=== PATIENT | female | born 1995 | race Caucasian/White ===

== ENCOUNTER 2016-08-25 12:12 | Observation (INO) | payer BC ==
[2016-08-25] MEDS ORDERED: SODIUM CHLORIDE 0.9% 1,000 ML IV STA (13:01)
[2016-08-25] MEDS ORDERED: ONDANSETRON 4 MG/2 ML VIAL IVP STA (13:01)
--- NOTE | 2016-08-25 13:18 | ED ---
Abdominal Pain HPI - General Source: patient, RN notes reviewed Mode of arrival: ambulatory Limitations: no limitations <Edi Arnold - Last Filed: 08/25/16 15:47> <Frank Mann - Last Filed: 08/25/16 15:55> - General Chief Complaint: Abdominal Pain Stated Complaint: Abnormal Labs Time Seen by Provider: 08/25/16 13:01 - History of Present Illness Initial Comments: 21 year old female presents emergency Department from flat kn[employer] office chief complaint abnormal ketones in urine. Patient states she's been vomiting today. States she is very nauseated and having diffuse abdominal discomfort. Patient states that her blood sugar was 160. Patient states she has been in the hospital multiple times but not recently. Patient states she just does not feel well. Patient states is currently is using insulin pens. Patient states that she's been fitted for a pump. Patient offers no other complaints. (Edi Arnold) - Related Data Home Medications Medication Instructions Recorded Confirmed Dextroamphetamine/Amphetamine 30 mg PO QAM 08/25/16 08/25/16 [Adderall Xr] INSULIN LISPRO (For Pump) [humaLOG 0.01 units SQ-PUMP CONTINUOUS 08/25/16 (For Pump)] Insulin Glargine [Lantus] 20 unit SQ HS 08/25/16 08/25/16 Allergies Allergy/AdvReac Type Severity Reaction Status Date / Time No Known Allergies Allergy Verified 08/25/16 12:25 Review of Systems ROS Other: All systems not noted in ROS Statement are negative. <Edi Arnold - Last Filed: 08/25/16 15:47> ROS Other: All systems not noted in ROS Statement are negative. <Frank Mann - Last Filed: 08/25/16 15:55> ROS Statement: Those systems with pertinent positive or pertinent negative responses have been documented in the HPI. Past Medical History Past Medical History: Diabetes Mellitus Additional Past Medical History / Comment(s): Diabetes mellitus type 2 diagnosed at 12 years of age on insulin pump History of Any Multi-Drug Resistant Organisms: None Reported Past Surgical History: Adenoidectomy, Tonsillectomy Past Psychological History: ADD/ADHD, Anxiety, Depression Smoking Status: Never smoker Past Alcohol Use History: Occasional Additional Past Alcohol Use History / Comment(s): 5 beers on the weekend, she uses marijuana on a daily basis. Past Drug Use History: Marijuana Additional Drug Use History / Comment(s): has not smoked MJ in a while - Past Family History Father Additional Family Medical History / Comment(s): Father is alive at age 61 and uses crack cocaine. Mother Family Medical History: Cancer Additional Family Medical History / Comment(s): Mother is alive at age 58 and has been treated for some type of blood cancer and she is an alcoholic. Brother(s) Additional Family Medical History / Comment(s): Patient has 1 brother but has not been in any contact with him. She has one sister that is 34 years old and has depression. Patient does not have any children of her own. <Edi Arnold - Last Filed: 08/25/16 15:47> General Exam Limitations: no limitations General appearance: alert, in no apparent distress Neck exam: Present: normal inspection, full ROM. Absent: tenderness, meningismus, lymphadenopathy Respiratory exam: Present: normal lung sounds bilaterally. Absent: respiratory distress, wheezes, rales, rhonchi, stridor Cardiovascular Exam: Present: normal rhythm, tachycardia, normal heart sounds. Absent: systolic murmur, diastolic murmur, rubs, gallop, clicks GI/Abdominal exam: Present: soft, tenderness (Mild diffuse), normal bowel sounds. Absent: distended, guarding, rebound, rigid Back exam: Absent: CVA tenderness (R), CVA tenderness (L) Skin exam: Present: warm, dry, intact, normal color. Absent: rash <Edi Arnold - Last Filed: 08/25/16 15:47> Course <Edi Arnold - Last Filed: 08/25/16 15:47> <Frank Mann - Last Filed: 08/25/16 15:55> Vital Signs 08/25/16 12:22 Temperature 98.6 F Pulse Rate 127 H Respiratory 18 Rate Blood Pressure 109/77 O2 Sat by Pulse 96 Oximetry - Reevaluation(s) Reevaluation #1: 08/25/16 15:03 Patient was reevaluated after second liter fluids. Patient states she feels much improved. Patient was pending repeat acetone. (Edi Arnold) Medical Decision Making - Lab Data Result diagrams: 08/25/16 13:28 08/25/16 13:28 <Edi Arnold - Last Filed: 08/25/16 15:47> - Lab Data Result diagrams: 08/25/16 13:28 08/25/16 13:28 <Frank Mann - Last Filed: 08/25/16 15:55> - Medical Decision Making Patient reexamined by myself, Dr. Mann. Patient resting comfortably in bed. Secondary to continued sermon acetone positive patient will be admitted for further hydration. DKA protocol will be started. Case discussed in detail with Dr. Alejandre, covering for Dr. gaitan, who will admit for Dr. Lozano. (Frank Mann) - Lab Data Lab Results 08/25/16 08/25/16 08/25/16 Range/Units 13:28 13:28 14:35 WBC 14.9 H (3.8-10.6) k/uL RBC 4.85 (3.80-5.40) m/uL Hgb 14.3 (11.4-16.0) gm/dL Hct 42.0 (34.0-46.0) % MCV 86.5 (80.0-100.0) fL MCH 29.5 (25.0-35.0) pg MCHC 34.1 (31.0-37.0) g/dL RDW 12.1 (11.5-15.5) % Plt Count 190 (150-450) k/uL Neutrophils % 94 % Lymphocytes % 2 % Monocytes % 2 % Eosinophils % 1 % Basophils % 0 % Neutrophils # 14.0 H (1.3-7.7) k/uL Lymphocytes # 0.3 L (1.0-4.8) k/uL Monocytes # 0.4 (0-1.0) k/uL Eosinophils # 0.1 (0-0.7) k/uL Basophils # 0.0 (0-0.2) k/uL Sodium 142 (137-145) mmol/L Potassium 4.1 (3.5-5.1) mmol/L Chloride 102 (98-107) mmol/L Carbon Dioxide 24 (22-30) mmol/L Anion Gap 16 mmol/L BUN 15 (7-17) mg/dL Creatinine 0.64 (0.52-1.04) mg/dL Est GFR (MDRD) Af Amer >60 (>60 ml/min/1.73 sqM) Est GFR (MDRD) Non-Af >60 (>60 ml/min/1.73 sqM) Glucose 233 H (74-99) mg/dL POC Glucose (mg/dL) (75-99) mg/dL POC Glu In Home Caregiver ID Calcium 9.5 (8.4-10.2) mg/dL Magnesium 1.5 L (1.6-2.3) mg/dL Total Bilirubin 0.8 (0.2-1.3) mg/dL AST 16 (14-36) U/L ALT 34 (9-52) U/L Alkaline Phosphatase 58 (38-126) U/L Total Protein 7.2 (6.3-8.2) g/dL Albumin 4.8 (3.5-5.0) g/dL Amylase 36 (30-110) U/L Lipase 50 (23-300) U/L Urine Color Urine Appearance (Clear) Urine pH (5.0-8.0) Ur Specific [place] (1.001-1.035) Urine Protein (Negative) Urine Glucose (UA) (Negative) Urine Ketones (Negative) Urine Blood (Negative) Urine Nitrate (Negative) Urine Bilirubin (Negative) Urine Urobilinogen (<2.0) mg/dL Ur Leukocyte Esterase (Negative) Urine RBC (0-5) /hpf Urine WBC (0-5) /hpf Ur Squamous Epith Cells (0-4) /hpf Urine Mucus (None) /hpf Urine HCG, Qual Not Detected (Not Detectd) Acetone, Qual Positive (Negative) 08/25/16 08/25/16 08/25/16 Range/Units 14:35 15:04 15:48 WBC (3.8-10.6) k/uL RBC (3.80-5.40) m/uL Hgb (11.4-16.0) gm/dL Hct (34.0-46.0) % MCV (80.0-100.0) fL MCH (25.0-35.0) pg MCHC (31.0-37.0) g/dL RDW (11.5-15.5) % Plt Count (150-450) k/uL Neutrophils % % Lymphocytes % % Monocytes % % Eosinophils % % Basophils % % Neutrophils # (1.3-7.7) k/uL Lymphocytes # (1.0-4.8) k/uL Monocytes # (0-1.0) k/uL Eosinophils # (0-0.7) k/uL Basophils # (0-0.2) k/uL Sodium (137-145) mmol/L Potassium (3.5-5.1) mmol/L Chloride (98-107) mmol/L Carbon Dioxide (22-30) mmol/L Anion Gap mmol/L BUN (7-17) mg/dL Creatinine (0.52-1.04) mg/dL Est GFR (MDRD) Af Amer (>60 ml/min/1.73 sqM) Est GFR (MDRD) Non-Af (>60 ml/min/1.73 sqM) Glucose (74-99) mg/dL POC Glucose (mg/dL) 220 H (75-99) mg/dL POC Glu In Home Caregiver ID Eunice Gutierrez Calcium (8.4-10.2) mg/dL Magnesium (1.6-2.3) mg/dL Total Bilirubin (0.2-1.3) mg/dL AST (14-36) U/L ALT (9-52) U/L Alkaline Phosphatase (38-126) U/L Total Protein (6.3-8.2) g/dL Albumin (3.5-5.0) g/dL Amylase (30-110) U/L Lipase (23-300) U/L Urine Color Yellow Urine Appearance Clear (Clear) Urine pH 5.5 (5.0-8.0) Ur Specific [place] 1.017 (1.001-1.035) Urine Protein Negative (Negative) Urine Glucose (UA) 4+ H (Negative) Urine Ketones 4+ H (Negative) Urine Blood Trace H (Negative) Urine Nitrate Negative (Negative) Urine Bilirubin Negative (Negative) Urine Urobilinogen <2.0 (<2.0) mg/dL Ur Leukocyte Esterase Negative (Negative) Urine RBC <1 (0-5) /hpf Urine WBC 1 (0-5) /hpf Ur Squamous Epith Cells 2 (0-4) /hpf Urine Mucus Occasional H (None) /hpf Urine HCG, Qual (Not Detectd) Acetone, Qual Positive (Negative) Disposition <Edi Arnold - Last Filed: 08/25/16 15:47> <Frank Mann - Last Filed: 08/25/16 15:55> Clinical Impression: DKA (diabetic ketoacidoses) Disposition: ADMITTED IP TO THIS HOSP Referrals: Gilda Lozano MD [Primary Care Provider] - 1-2 days
[2016-08-25 13:47] LABS: Basophils % (A) 0 %; CHCM 34.8; Eosinophils # (A) 0.1 k/uL (0-0.7); Eosinophils % (A) 1 %; HDW 2.57; HGB 14.3 gm/dL (11.4-16.0); Luc # (Auto) 0.04; Luc % (Auto) 0; Lymphocytes # (A) 0.3 k/uL (1.0-4.8); Lymphocytes % (A) 2 %; MCH 29.5 pg (25.0-35.0); MCHC 34.1 g/dL (31.0-37.0); MCV 86.5 fL (80.0-100.0); Mean Platelet Volume 8.3; Monocytes # (A) 0.4 k/uL (0-1.0); Monocytes % (A) 2 %; Neutrophils % (A) 94 %; RBC 4.85 m/uL (3.80-5.40); RDW 12.1 % (11.5-15.5); WBC 14.9 k/uL (3.8-10.6); WBC (Perox) 15.07
[2016-08-25 13:54] LABS: ALT 34 U/L (9-52); AST 16 U/L (14-36); Alkaline Phosphatase 58 U/L (38-126); Amylase 36 U/L (30-110); Anion Gap 16 mmol/L; Blood Urea Nitrogen 15 mg/dL (7-17); Calcium 9.5 mg/dL (8.4-10.2); Carbon Dioxide 24 mmol/L (22-30); Chloride 102 mmol/L (98-107); Glucose 233 mg/dL (74-99); Magnesium 1.5 mg/dL (1.6-2.3); Non-African American GFR(MDRD) >60 (>60 ml/min/1.73 sqM); Potassium 4.1 mmol/L (3.5-5.1); Sodium 142 mmol/L (137-145); Total Bilirubin 0.8 mg/dL (0.2-1.3); Total Protein 7.2 g/dL (6.3-8.2)
[2016-08-25] MEDS ORDERED: KETOROLAC 30 MG/ML 1 ML VIAL IVP STA (14:07)
[2016-08-25] MEDS ORDERED: SODIUM CHLORIDE 0.9% 1,000 ML IV ONE (14:12)
[2016-08-25 14:52] LABS: Appearance,Urine Clear (Clear); Bilirubin,Urine Negative (Negative); Glucose,Urine (UA) 4+ (Negative); Leukocyte Esterase,Urine Negative (Negative); Mucus,Urine Occasional /hpf; Nitrite,Urine Negative (Negative); PH, Urine 5.5 (5.0-8.0); Particle Count 3667; Protein,Urine Negative (Negative); RBC,Urine <1 /hpf (0-5); Specific Gravity,Urine 1.017 (1.001-1.035); Squamous Epithelial Cell,Urine 2 /hpf (0-4); UA Billing (MACRO vs. MICRO) MICRO; Urobilinogen,Urine <2.0 mg/dL (<2.0); WBC,Urine 1 /hpf (0-5)
[2016-08-25 14:59] LABS: Ketones,Urine 4+ (Negative)
[2016-08-25 15:51] LABS: Glucose,Whole Blood 220 mg/dL (75-99)
[2016-08-25] MEDS ORDERED: INSULIN REGULAR 100 UNIT in SODIUM CHLORIDE 0.9% 100 ML IV SCH (16:30)
[2016-08-25] MEDS: D5-0.45% NACL WITH KCL 20MEQ/L 1,000 ML IV SCH ×2 (16:36→23:10)
[2016-08-25 17:13] LABS: Glucose,Whole Blood 264 mg/dL (75-99)
[2016-08-25] MEDS ORDERED: INSULIN LISPRO (humaLOG) 300 UNIT/3 ML VIAL SQ SCH (17:30)
[2016-08-25 18:14] LABS: Anion Gap 12 mmol/L; Blood Urea Nitrogen 13 mg/dL (7-17); Carbon Dioxide 23 mmol/L (22-30); Chloride 105 mmol/L (98-107); Glucose 242 mg/dL (74-99); Non-African American GFR(MDRD) >60 (>60 ml/min/1.73 sqM); Potassium 3.6 mmol/L (3.5-5.1); Sodium 140 mmol/L (137-145)
[2016-08-25] MEDS: SODIUM CHLORIDE 0.9% 1,000 ML IV SCH ×2 (18:16→22:04)
[2016-08-25 18:45] VITALS: BMI 24.7
[2016-08-25 18:53] LABS: Glucose,Whole Blood 208 mg/dL (75-99)
[2016-08-25 19:31] LABS: Glucose,Whole Blood 189 mg/dL (75-99)
[2016-08-25 20:30] LABS: Glucose,Whole Blood 143 mg/dL (75-99)
[2016-08-25 20:43] LABS: Hemoglobin A1C 8.2 % (4.2-6.1)
[2016-08-25] MEDS ORDERED: ACETAMINOPHEN TAB 325 MG TAB PO PRN (21:28)
[2016-08-25] MEDS ORDERED: Magnesium Replacement Protocol 1 EACH MISC MISCELLANE PRN (21:28)
[2016-08-25] MEDS ORDERED: HYDROcodone/APAP 5-325MG 1 EACH TAB PO PRN (21:28)
[2016-08-25 21:35] LABS: Anion Gap 13 mmol/L; Blood Urea Nitrogen 11 mg/dL (7-17); Carbon Dioxide 25 mmol/L (22-30); Chloride 102 mmol/L (98-107); Glucose 124 mg/dL (74-99); Non-African American GFR(MDRD) >60 (>60 ml/min/1.73 sqM); Sodium 140 mmol/L (137-145)
[2016-08-25 21:36] LABS: Glucose,Whole Blood 120 mg/dL (75-99)
--- NOTE | 2016-08-25 21:53 | XR ---
EXAMINATION TYPE: XR chest 2V DATE OF EXAM: 08/25/2016 9:47 PM COMPARISON: NONE HISTORY: Infection TECHNIQUE: Frontal and lateral views of the chest are obtained. FINDINGS: Heart and mediastinum are normal. Lungs are clear. Diaphragm is normal. Bony thorax and so ft tissues appear normal. There are chest leads. IMPRESSION: Normal chest.
[2016-08-25] MEDS ORDERED: LEVOFLOXACIN 500MG-D5W PMX 500 MG in DEXTROSE/WATER 1 100ML.BAG IVPB SCH (22:00)
[2016-08-25 22:32] LABS: Glucose,Whole Blood 118 mg/dL (75-99)
[2016-08-25 23:37] LABS: Glucose,Whole Blood 200 mg/dL (75-99)
[2016-08-25] MEDS: MAGNESIUM SULFATE-D5W PMX 1 GM in DEXTROSE/WATER 1 100ML.BAG IVPB SCH (23:51)
[2016-08-26 00:43] LABS: Glucose,Whole Blood 281 mg/dL (75-99)
[2016-08-26 00:46] LABS: Glucose,Whole Blood 301 mg/dL (75-99)
[2016-08-26 01:45] LABS: Glucose,Whole Blood 275 mg/dL (75-99)
[2016-08-26] MEDS: MAGNESIUM SULFATE-D5W PMX 1 GM in DEXTROSE/WATER 1 100ML.BAG IVPB SCH ×2 (01:50→03:26)
[2016-08-26 02:48] LABS: Glucose,Whole Blood 269 mg/dL (75-99)
[2016-08-26 02:56] LABS: Anion Gap 10 mmol/L; Blood Urea Nitrogen 8 mg/dL (7-17); Carbon Dioxide 20 mmol/L (22-30); Chloride 104 mmol/L (98-107); Glucose 282 mg/dL (74-99); Magnesium 2.2 mg/dL (1.6-2.3); Non-African American GFR(MDRD) >60 (>60 ml/min/1.73 sqM); Potassium 3.6 mmol/L (3.5-5.1); Sodium 134 mmol/L (137-145)
[2016-08-26] MEDS ORDERED: INSULIN NPH 300 UNIT/3 ML VIAL SQ ONE (03:28)
[2016-08-26 03:35] LABS: Glucose,Whole Blood 247 mg/dL (75-99)
[2016-08-26] MEDS: SODIUM CHLORIDE 0.9% 1,000 ML IV SCH (03:37)
[2016-08-26 04:26] LABS: Glucose,Whole Blood 218 mg/dL (75-99)
[2016-08-26 06:05] LABS: Glucose,Whole Blood 161 mg/dL (75-99)
[2016-08-26] MEDS: INSULIN LISPRO (humaLOG) 300 UNIT/3 ML VIAL SQ SCH ×4 (07:20→12:10)
[2016-08-26 07:54] VITALS: RESP 18
[2016-08-26 08:32] LABS: Basophils % (A) 0 %; CH 29.9; CHCM 34.3; Eosinophils # (A) 0.1 k/uL (0-0.7); Eosinophils % (A) 2 %; HGB 12.6 gm/dL (11.4-16.0); Luc # (Auto) 0.05; Luc % (Auto) 1; Lymphocytes # (A) 0.7 k/uL (1.0-4.8); Lymphocytes % (A) 13 %; MCH 29.9 pg (25.0-35.0); MCHC 34.1 g/dL (31.0-37.0); MCV 87.6 fL (80.0-100.0); Mean Platelet Volume 9.8; Monocytes # (A) 0.4 k/uL (0-1.0); Monocytes % (A) 8 %; Neutrophils # (A) 3.9 k/uL (1.3-7.7); Neutrophils % (A) 77 %; RBC 4.23 m/uL (3.80-5.40); RDW 12.2 % (11.5-15.5); WBC (Perox) 5.63
[2016-08-26 08:33] LABS: Glucose,Whole Blood 167 mg/dL (75-99)
[2016-08-26 08:56] LABS: Hemoglobin A1C 8.2 % (4.2-6.1)
[2016-08-26] MEDS ORDERED: INSULIN NPH 300 UNIT/3 ML VIAL SQ STA (09:50)
[2016-08-26] MEDS ORDERED: SODIUM CHLORIDE 0.9% 1,000 ML IV SCH (10:00)
[2016-08-26 11:29] VITALS: BP 104/62; PULSE 95; TEMP 98.7
[2016-08-26 11:43] LABS: Glucose,Whole Blood 198 mg/dL (75-99)
--- NOTE | 2016-08-26 17:55 | HP ---
H&P and discharge summary DATE OF ADMISSION: Patient is a 21-year-old female who was sent in here because of abnormal ketones in the urine and patient was having mild nausea as well as abdominal pain both of which resolved at this point of time. The patient was found to be in DKA and patient was taking 20 units of Lantus a carb counting sliding scale with each meal and patient was recently started on insulin pump and insulin pump was adjusted 2 days ago. Patient here was treated for DKA with IV fluids and IV insulin. Subsequently with resolution of anion gap, but subsequently changed to subcutaneous insulin, was transitioned to NPH and premeal insulin. As patient is using insulin pump, patient was advised to continue using insulin pump and take the bolus dose in place of nighttime insulin later in the night today. The patient will follow with Dr. Osborn ) next week Tuesday. Patient's abdominal pain resolved, which is again secondary to diabetic ketoacidosis. Patient has leukocytosis as a reactive response, which improved to from 14,900 to 5,000 after treatment of DKA. The patient does not have any signs or symptoms of sepsis including urinary tract symptoms or cough, runny nose and no evidence of infection at this point of time. No fever. REVIEW OF SYSTEMS: CONSTITUTIONAL: No fever, no malaise, no fatigue. HEENT: No recent visual problems or hearing problems. Denied any sore throat. CARDIOVASCULAR: No chest pain, orthopnea, PND, no palpitations, no syncope. PULMONARY: No shortness of breath, no cough, no hemoptysis. GASTROINTESTINAL: No diarrhea, no nausea, no vomiting, no abdominal pain. Normoactive bowel sounds. NEUROLOGICAL: No headaches, no weakness, no numbness. HEMATOLOGICAL: Denies any bleeding or petechiae. GENITOURINARY: Denies any burning micturition, frequency, or urgency. MUSCULOSKELETAL/RHEUMATOLOGICAL: Denies any joint pain, swelling, or any muscle pain. ENDOCRINE: As mentioned above. The rest of the 14 point review of systems is negative. PAST MEDICAL HISTORY: Significant for type 2 diabetes mellitus, adenoidectomy, tonsillectomy, ADHD, anxiety, depression. Denied any smoking or alcohol abuse. Occasionally use of marijuana. FAMILY HISTORY: Mother had cancer. No significant history in her father or brother. PHYSICAL EXAMINATION: Temperature 98.7, pulse of 95, which patient was tachycardic yesterday, which improved at this point of time. Respiratory rate of 18, blood pressure is 104/62, saturating at 98% on room air. GENERAL: The patient is alert and oriented x3, not in any acute distress. Well developed, well nourished. HEENT: Pupils are round and equally reacting to light. EOMI. No scleral icterus. No conjunctival pallor. Normocephalic, atraumatic. No pharyngeal erythema. No thyromegaly. CARDIOVASCULAR: S1 and S2 present. No murmurs, rubs, or gallops. PULMONARY: Chest is clear to auscultation, no wheezing or crackles. ABDOMEN: Soft, nontender, nondistended, normoactive bowel sounds. No palpable organomegaly. MUSCULOSKELETAL: No joint swelling or deformity. EXTREMITIES: No cyanosis, clubbing, or pedal edema. NEUROLOGICAL: Gross neurological examination did not reveal any focal deficits. SKIN: No rashes. LABORATORY DATA: CBC, CMP, significant ones as described above. Patient's magnesium was 1.5, which was corrected and now urine has 4+ glucose, 4+ ketones, and occasional mucus. ASSESSMENT AND PLAN: 1. Diabetic ketoacidosis. Management as mentioned. 2. Type 1 diabetes mellitus, uncontrolled blood sugars. 3. Multiple electrolyte abnormalities due to diabetic ketoacidosis. 4. Leukocytosis, reactive response due to diabetic ketoacidosis. 5. Attention deficit hyperactivity disorder. Continue her home medication. Patient will be discharged today. THIS DICTATION IS BOTH H&P AND DISCHARGE SUMMARY. DISCHARGE DIET: ADA 1800 calorie diet. Counseling regarding appropriate use of insulin pump was provided. Patient will follow with Gilda Lozano on August 30 at 11:15. Activity as tolerated. MTDD
[2016-08-26] MEDS ORDERED: INSULIN GLARGINE 100 UNIT/ML 10 ML VIAL SQ SCH (21:00)
== END 2016-08-26 14:28 | disposition home or self-care (01) ==
LOC: EC 12:12 → 6SEL 15:53 → INTOOBSV 15:53 → 6SEL 18:10
PROVIDERS: ADMIT Internal Medicine; ATTEND Internal Medicine
DX: E10.10 Type 1 diabetes mellitus with ketoacidosis without coma (principal); F32.9 Major depressive disorder, single episode, unspecified; F12.90 Cannabis use, unspecified, uncomplicated; F90.9 Attention-deficit hyperactivity disorder, unspecified type; F41.9 Anxiety disorder, unspecified; Z96.41 Presence of insulin pump (external) (internal); Z79.899 Other long term (current) drug therapy; Z81.3 Family history of other psychoactive substance abuse and dependence; Z81.1 Family history of alcohol abuse and dependence
CPT/HCPCS: 99284; 96365; 96366; 96375; 96368; 96361; 36415; 80051 ×2; 80053; 82150; 83036 ×2; 82565 ×2; 82009; 83690; 83735 ×2; 84100 ×2; 82947 ×2; 84520 ×2; 85025 ×2; 81001; 81025; 87040; 87502; 71020; G0378 ×2; J2405; J1956; J1885; J3475 ×2